=== PATIENT | female | born 1960 | race Caucasian/White ===

== ENCOUNTER 2021-04-05 13:58 | Inpatient (IN) | payer BC, MEDICARE ==
[~2021-04-05] VITALS: Ht 177.8 cm; Wt 61.2 kg
[2021-04-05 14:52] LABS: BASOPHILS % (AUTO) 0.3 % (0-1); EOSINOPHILS # (AUTO) 1.7 X10'3 (0-0.9); EOSINOPHILS % (AUTO) 19.9 % (0-6); HEMOGLOBIN 13.8 g/dl (12.0-16.0); LYMPHOCYTES # (AUTO) 2.5 X10'3 (1.1-4.8); LYMPHOCYTES % (AUTO) 29.9 % (21-51); MEAN CORPUSCULAR HEMOGLOBIN 30.7 PG (27.0-31.0); MEAN CORPUSCULAR HGB CONC 33.7 g/dL (33.0-36.5); MEAN PLATELET VOLUME 8.8 FL (7.4-10.4); MONOCYTES # (AUTO) 0.5 X10'3 (0-0.9); MONOCYTES % (AUTO) 5.8 % (2-12); NEUTROPHILS # (AUTO) 3.7 X10'3 (1.8-7.7); NEUTROPHILS % (AUTO) 44.1 % (42-75); PLATELET COUNT 282 X10'3 (140-440); RED BLOOD COUNT 4.51 X10'6 (4.20-5.60); RED CELL DISTRIBUTION WIDTH 13.4 % (11.5-14.5); WHITE BLOOD COUNT 8.3 X10'3 (4.5-11.0)
[2021-04-05 15:01] LABS: CLARITY,URINE CLOUDY (Clear); COLOR,URINE YELLOW (Yellow); GLUCOSE, URINE NEGATIVE (Neg); KETONES,URINE NEGATIVE (Neg); LEUKOCYTE ESTERASE ,URINE NEGATIVE (Neg); NITRITES, URINE NEGATIVE (Neg); OCCULT BLOOD,URINE NEGATIVE (Neg); PH,URINE 5.5 (4.8-8.0); PROTEIN,URINE NEGATIVE (Neg); UROBILINOGEN,URINE 0.2 E.U/dL (0.2-1.0)
[2021-04-05 15:02] LABS: UA COLLECTION TYPE CLN CATCH MIDSTREAM
[2021-04-05 15:05] LABS: BACTERIA,URINE 1+ /HPF (Neg); MUCUS STRANDS FEW /LPF (Neg); RBC,URINE 0-2 /HPF (0-2); SQUAMOUS EPITHELIAL CELL,UR MANY /LPF (FEW); WBC,URINE 0-4 /HPF (0-4)
[2021-04-05 15:14] LABS: ALANINE AMINOTRANSFERASE 27 U/L (12-78); ALBUMIN 3.9 G/DL (3.4-5.0); ALBUMIN/GLOBULIN RATIO 1.1 (1.1-1.5); ALKALINE PHOSPHATASE 88 IU/L (46-116); ANION GAP 6 (8-16); ASPARTATE AMINO TRANSFERASE 36 U/L (10-37); BILIRUBIN,TOTAL 0.5 MG/DL (0.1-1.0); BLOOD UREA NITROGEN 20 MG/DL (7-18); BUN/CREATININE RATIO 16.7 (6.6-38.0); CALCIUM 9.4 MG/DL (8.5-10.1); CHLORIDE 107 MMOL/L (99-107); GLUCOSE 83 MG/DL (70-104); LIPASE 579 U/L (73-393); SODIUM 145 MMOL/L (135-145); TOTAL CARBON DIOXIDE 31.9 MMOL/L (24-32); TOTAL PROTEIN 7.4 G/DL (6.4-8.2); eGFR 46 ML/MIN
[2021-04-05] MEDS ORDERED: acetaminophen 325mg tablet PO PRN ×2 (17:05)
[2021-04-05] MEDS ORDERED: magnesium Cl slow-release 64mg tablet PO PRN (17:05)
[2021-04-05] MEDS: piperacillin/tazo 3.375gm/50ml 50 ML IV SCH (17:05)
[2021-04-05] MEDS ORDERED: HYDROcodone/acetaminophen 5mg/325mg tablet PO PRN (17:05)
[2021-04-05] MEDS ORDERED: HYDROcodone/acetaminophen 10/325mg tab PO PRN (17:05)
[2021-04-05] MEDS ORDERED: potassium Cl 20 mEq SR tablet PO PRN ×2 (17:05)
[2021-04-05] MEDS ORDERED: magnesium 2GM in 50ml NS 50 ML IV PRN (17:05)
[2021-04-05] MEDS ORDERED: potassium Cl 40MEQ/1/2NS 520ml 520 ML IV PRN ×2 (17:05)
[2021-04-05] MEDS ORDERED: morphine 2 MG/ML inj. syringe IV PRN ×2 (17:05)
[2021-04-05] MEDS ORDERED: magnesium 4gm in 100ml NS 100 ML IV PRN (17:05)
[2021-04-05] MEDS ORDERED: iohexol 300mg/ml 100ml inj. ONE (17:38)
[2021-04-05] MEDS: normal saline 1000ml 1,000 ML IV SCH (17:48)
--- NOTE | 2021-04-05 19:23 | NUR ---
CALLED ER FOR REPORT AND NURSE WILL CALL BACK.
[2021-04-05] MEDS ORDERED: CHOL20004 PO (19:38)
[2021-04-05] MEDS ORDERED: CLON-528 PO (19:40)
[2021-04-05] MEDS ORDERED: ESTR42.53 VG (19:41)
[2021-04-05] MEDS ORDERED: GABA300C PO (19:42)
[2021-04-05] MEDS ORDERED: LEVO75TA PO (19:43)
[2021-04-05] MEDS ORDERED: OMEP-50 PO (19:44)
[2021-04-05] MEDS ORDERED: OXYC-150 PO (19:45)
[2021-04-05] MEDS ORDERED: PROP20TA6 PO (19:47)
--- NOTE | 2021-04-05 19:53 | NUR ---
REPORT RECEIVED FROM YEN IN ER. WAITING FOR PATIENT TO ARRIVE.
--- NOTE | 2021-04-05 19:58 | NUR ---
Page Sent PAGER ID: [phone] MESSAGE: Letty [phone]. RE: [facility] ER/[facility]. Updated med rec, pt is requesting Percocet that she usually takes at home. Does not want morphine or [place].
[2021-04-05 20:00] VITALS: BP 134/77
[2021-04-05] MEDS: K and/or MAG REPLACEMENT MC SCH (20:00)
--- NOTE | 2021-04-05 20:00 | NUR ---
PATIENT ARRIVED AND WILL CONTINUE TO MONITOR.
[2021-04-05] MEDS: pantoprazole 40 MG vial IV SCH (20:30)
[2021-04-05] MEDS: docusate sod 100mg capsule PO SCH (20:31)
[2021-04-05] MEDS: oxyCODONE/APAP 10/325mg tablet PO PRN (20:32)
[2021-04-05] MEDS: ondansetron/PF 4mg/2ml inj IV PRN (20:36)
[2021-04-05] MEDS: heparin, porcine 5000 units/ml vial SQ SCH (20:36)
[2021-04-05] MEDS ORDERED: PROP10TA10 PO (22:28)
[2021-04-06] VITALS: BP 102/56
[2021-04-06] MEDS: piperacillin/tazo 3.375gm/50ml 50 ML IV SCH ×4 (00:21→23:06)
[2021-04-06] MEDS: normal saline 1000ml 1,000 ML IV SCH ×3 (03:05→20:15)
[2021-04-06] MEDS: oxyCODONE/APAP 10/325mg tablet PO PRN ×3 (03:15→15:53)
--- NOTE | 2021-04-06 06:05 | NUR ---
Problems reprioritized. Patient report given, questions answered & plan of care reviewed with CAIO DICKINSON.
[2021-04-06 06:10] LABS: BASOPHILS % (AUTO) 0.3 % (0-1); EOSINOPHILS # (AUTO) 2.4 X10'3 (0-0.9); EOSINOPHILS % (AUTO) 32.9 % (0-6); HEMATOCRIT 35.5 % (35.0-45.0); HEMOGLOBIN 11.8 g/dl (12.0-16.0); LYMPHOCYTES # (AUTO) 2.1 X10'3 (1.1-4.8); LYMPHOCYTES % (AUTO) 27.6 % (21-51); MEAN CORPUSCULAR HEMOGLOBIN 30.2 PG (27.0-31.0); MEAN CORPUSCULAR HGB CONC 33.2 g/dL (33.0-36.5); MEAN PLATELET VOLUME 8.7 FL (7.4-10.4); MONOCYTES # (AUTO) 0.4 X10'3 (0-0.9); NEUTROPHILS # (AUTO) 2.5 X10'3 (1.8-7.7); NEUTROPHILS % (AUTO) 33.2 % (42-75); PLATELET COUNT 206 X10'3 (140-440); RED BLOOD COUNT 3.91 X10'6 (4.20-5.60); RED CELL DISTRIBUTION WIDTH 13.7 % (11.5-14.5); WHITE BLOOD COUNT 7.4 X10'3 (4.5-11.0)
[2021-04-06 06:33] LABS: ALANINE AMINOTRANSFERASE 20 U/L (12-78); ALBUMIN 2.9 G/DL (3.4-5.0); ALBUMIN/GLOBULIN RATIO 1.1 (1.1-1.5); ALKALINE PHOSPHATASE 69 IU/L (46-116); ANION GAP 8 (8-16); ASPARTATE AMINO TRANSFERASE 29 U/L (10-37); BILIRUBIN,TOTAL 0.7 MG/DL (0.1-1.0); BLOOD UREA NITROGEN 15 MG/DL (7-18); BUN/CREATININE RATIO 13.4 (6.6-38.0); CALCIUM 8.3 MG/DL (8.5-10.1); CHLORIDE 109 MMOL/L (99-107); CHOL/HDL RATIO 3.3 (0.00-4.99); CHOLESTEROL 127 MG/DL (0-200); CREATININE 1.12 MG/DL (0.40-0.90); GLUCOSE 82 MG/DL (70-104); HDL CHOLESTEROL 38 MG/DL (35-60); LDL CHOLESTEROL 75 MG/DL (50-100); MAGNESIUM 1.8 MG/DL (1.5-2.4); POTASSIUM 3.8 MMOL/L (3.5-5.1); SODIUM 145 MMOL/L (135-145); TOTAL CARBON DIOXIDE 27.9 MMOL/L (24-32); TOTAL PROTEIN 5.6 G/DL (6.4-8.2); TRIGLYCERIDES 57 MG/DL (20-135); eGFR 49 ML/MIN
[2021-04-06 07:00] VITALS: BP 120/69
[2021-04-06 07:17] LABS: TOTAL CELLS COUNTED 100
[2021-04-06 07:19] LABS: PLATELET ESTIMATE NORMAL; POIKILOCYTOSIS FEW
[2021-04-06] MEDS: heparin, porcine 5000 units/ml vial SQ SCH ×2 (08:00→20:12)
[2021-04-06] MEDS: K and/or MAG REPLACEMENT MC SCH ×2 (08:00→20:00)
[2021-04-06] MEDS: docusate sod 100mg capsule PO SCH ×2 (08:00→20:00)
[2021-04-06] MEDS: pantoprazole 40 MG vial IV SCH ×2 (08:45→20:10)
[2021-04-06] MEDS ORDERED: LORazepam 2 mg/ml vial IV STA (09:28)
[2021-04-06] MEDS ORDERED: clonazePAM 0.5mg tablet PO PRN (11:05)
--- NOTE | 2021-04-06 18:22 | NUR ---
I have received report from Huyen DICKINSON and had the opportunity to ask questions and assume patient care.
--- NOTE | 2021-04-06 18:35 | NUR ---
Problems reprioritized. Patient report given, questions answered & plan of care reviewed with Tg DICKINSON.
[2021-04-06 19:00] VITALS: BP 114/63
[2021-04-06] MEDS: gabapentin 300mg capsule PO SCH (20:12)
[2021-04-06] MEDS: lactobacillus rhamnosus 10,000 MMU CELLS/CAPSULE PO SCH (20:12)
[2021-04-06] MEDS ORDERED: propranolol 10mg tablet PO SCH (21:00)
[2021-04-07] VITALS: BP 116/65
--- NOTE | 2021-04-07 01:24 | NUR ---
pt asked if she would like pain medication, but pt declined. pt stated she cant take pain medication at night because "it keeps her up." Addendum: 04/07/21 at 0125 by Tg Davis RN Amended: Links added.
[2021-04-07] MEDS: oxyCODONE/APAP 10/325mg tablet PO PRN ×3 (03:44→18:03)
[2021-04-07] MEDS: normal saline 1000ml 1,000 ML IV SCH ×2 (04:54→13:58)
--- NOTE | 2021-04-07 06:35 | NUR ---
Problems reprioritized. Patient report given, questions answered & plan of care reviewed with Lina DICKINSON.
--- NOTE | 2021-04-07 06:38 | NUR ---
Patient in room [facility]. I have received report from Tg DICKINSON and had the opportunity to ask questions and assume patient care.
[2021-04-07] MEDS: ondansetron/PF 4mg/2ml inj IV PRN (07:16)
[2021-04-07 08:00] VITALS: BP 109/64
[2021-04-07] MEDS ORDERED: levoTHYROXINE 75mcg tablet PO SCH (08:00)
[2021-04-07] MEDS: K and/or MAG REPLACEMENT MC SCH (08:00)
[2021-04-07] MEDS: pantoprazole 40 MG vial IV SCH (08:20)
[2021-04-07] MEDS: lactobacillus rhamnosus 10,000 MMU CELLS/CAPSULE PO SCH (08:21)
[2021-04-07] MEDS: gabapentin 300mg capsule PO SCH (08:21)
[2021-04-07] MEDS: piperacillin/tazo 3.375gm/50ml 50 ML IV SCH ×2 (08:21→17:21)
[2021-04-07] MEDS: docusate sod 100mg capsule PO SCH (08:21)
[2021-04-07] MEDS: heparin, porcine 5000 units/ml vial SQ SCH (08:22)
[2021-04-07 08:27] LABS: BASOPHILS % (AUTO) 0.3 % (0-1); EOSINOPHILS # (AUTO) 2.4 X10'3 (0-0.9); EOSINOPHILS % (AUTO) 35.5 % (0-6); HEMATOCRIT 36.6 % (35.0-45.0); HEMOGLOBIN 12.2 g/dl (12.0-16.0); LYMPHOCYTES # (AUTO) 1.9 X10'3 (1.1-4.8); LYMPHOCYTES % (AUTO) 27.5 % (21-51); MEAN CORPUSCULAR HEMOGLOBIN 30.3 PG (27.0-31.0); MEAN CORPUSCULAR HGB CONC 33.4 g/dL (33.0-36.5); MEAN CORPUSCULAR VOLUME 90.7 FL (78-98); MEAN PLATELET VOLUME 8.8 FL (7.4-10.4); MONOCYTES # (AUTO) 0.3 X10'3 (0-0.9); NEUTROPHILS # (AUTO) 2.1 X10'3 (1.8-7.7); NEUTROPHILS % (AUTO) 31.7 % (42-75); PLATELET COUNT 227 X10'3 (140-440); RED BLOOD COUNT 4.03 X10'6 (4.20-5.60); RED CELL DISTRIBUTION WIDTH 13.7 % (11.5-14.5); WHITE BLOOD COUNT 6.8 X10'3 (4.5-11.0)
[2021-04-07 08:55] LABS: ALANINE AMINOTRANSFERASE 17 U/L (12-78); ALBUMIN/GLOBULIN RATIO 1.1 (1.1-1.5); ALKALINE PHOSPHATASE 68 IU/L (46-116); ANION GAP 8 (8-16); ASPARTATE AMINO TRANSFERASE 29 U/L (10-37); BILIRUBIN,TOTAL 0.4 MG/DL (0.1-1.0); BLOOD UREA NITROGEN 12 MG/DL (7-18); BUN/CREATININE RATIO 11.1 (6.6-38.0); CALCIUM 8.7 MG/DL (8.5-10.1); CHLORIDE 110 MMOL/L (99-107); CREATININE 1.08 MG/DL (0.40-0.90); GLUCOSE 86 MG/DL (70-104); MAGNESIUM 1.7 MG/DL (1.5-2.4); POTASSIUM 3.9 MMOL/L (3.5-5.1); SODIUM 144 MMOL/L (135-145); TOTAL CARBON DIOXIDE 26.4 MMOL/L (24-32); TOTAL PROTEIN 5.8 G/DL (6.4-8.2); eGFR 52 ML/MIN
[2021-04-07 12:00] VITALS: BP 117/56
[2021-04-07 15:19] LABS: LIPASE 284 U/L (73-393)
--- NOTE | 2021-04-07 18:48 | NUR ---
I have received report from Lina DICKINSON and had the opportunity to ask questions and assume patient care.
[2021-04-07 19:00] VITALS: BP 111/49
--- NOTE | 2021-04-07 22:10 | NUR ---
Pt had discharge orders in when I arrived on shift. Day shift nurse had all discharge paperwork printed out for the pt. VSS no signs of distress. pt IV was removed, cannula intact. discharge instructions went over with the pt and all questions answered. pt was brought down to lobby in a wheelchair with all personal belongings. pt left in a private vehicle.
--- NOTE | 2021-04-08 14:54 | NUR ---
CASE MANAGEMENT DISCHARGE FOLLOW UP: T/c to pt, she states that she is not doing very good at the moment, states having intense pain in abdomen. Will have gallbladder out tomorrow morning at [facility] with Dr Erickson. Per pt request, please call tomorrow afternoon. Will call pt back at another time.
== END 2021-04-07 20:00 | disposition home or self-care (01) | DRG 444 ==
LOC: ER 13:59 → ED HOLD 17:05 → EDBEDREQ 18:58 → SUR 3N 20:07
PROVIDERS: ADMIT Internal Medicine; ATTEND Internal Medicine
PROC: BW211ZZ Computerized Tomography (CT Scan) of Abdomen and Pelvis using Low Osmolar Contrast (ICD-10-PCS; principal; 2021-04-05)
DX: K80.10 Calculus of gallbladder with chronic cholecystitis without obstruction (principal); K85.10 Biliary acute pancreatitis without necrosis or infection; N17.0 Acute kidney failure with tubular necrosis; E03.9 Hypothyroidism, unspecified; F41.9 Anxiety disorder, unspecified; G43.909 Migraine, unspecified, not intractable, without status migrainosus; Z20.822 Contact with and (suspected) exposure to COVID-19; G89.4 Chronic pain syndrome; M54.9 Dorsalgia, unspecified; K21.9 Gastro-esophageal reflux disease without esophagitis; Z87.891 Personal history of nicotine dependence; Z90.710 Acquired absence of both cervix and uterus; Z88.8 Allergy status to other drugs, medicaments and biological substances
CPT/HCPCS: 36415; 74177; 74181; 76700; 80053; 80061; 81001; 83605; 83690; 83735; 85007; 85025; 87040; 87081; 87635; 93005; 96365; 96375; 97116; 97161; 97530; 99285; C9113; G0378; J1644; J2060; J2270; J2405; J2543; J7030; Q9967

== ENCOUNTER 2021-04-09 10:43 | Day surgery (SDC) | payer BC, MEDICARE ==
[2021-04-09] VITALS (14 sets, daily range): BP systolic 130–152; BP diastolic 73–101
[~2021-04-09] VITALS: Ht 177.8 cm; Wt 61.2 kg
[~2021-04-09 10:43] MED LIST: CHOL20004 PO; CLON-528 PO; ESTR42.53 VG; GABA300C PO; LEVO75TA PO; OMEP-50 PO; OXYC-150 PO; PROP10TA10 PO
[2021-04-09] MEDS ORDERED: INDOCYANINE GREEN 25 MG/10 ML VIAL IV ONE (10:45)
[2021-04-09] MEDS ORDERED: ceFOXitin sod/dextrose 2g/50ml 50 ML IV ONE (10:45)
[2021-04-09] MEDS ORDERED: ceFOXitin 2GM-NS 100mL ADDvant 100 ML IV ONE (11:00)
[2021-04-09] MEDS ORDERED: ringers solution, lacted 1,000 ML IV SCH ×2 (11:20→14:35)
[2021-04-09] MEDS ORDERED: famotidine 20mg tablet PO ONE (11:20)
[2021-04-09] MEDS ORDERED: ONDA8TAB13 PO (11:21)
[2021-04-09] MEDS ORDERED: ATRNS NAS (11:21)
[2021-04-09 11:50] LABS: BASOPHILS % (AUTO) 0.5 % (0-1); EOSINOPHILS # (AUTO) 2.5 X10'3 (0-0.9); EOSINOPHILS % (AUTO) 31.8 % (0-6); LYMPHOCYTES # (AUTO) 2.1 X10'3 (1.1-4.8); LYMPHOCYTES % (AUTO) 26.8 % (21-51); MEAN CORPUSCULAR HEMOGLOBIN 30.7 PG (27.0-31.0); MEAN CORPUSCULAR HGB CONC 33.8 g/dL (33.0-36.5); MEAN CORPUSCULAR VOLUME 90.8 FL (78-98); MEAN PLATELET VOLUME 8.5 FL (7.4-10.4); MONOCYTES # (AUTO) 0.5 X10'3 (0-0.9); NEUTROPHILS # (AUTO) 2.7 X10'3 (1.8-7.7); NEUTROPHILS % (AUTO) 34.9 % (42-75); PRE OP HEMATOCRIT 35.8 % (35.0-45.0); PRE OP HEMOGLOBIN 12.1 g/dL (12.0-16.0); PRE OP PLATELET COUNT 227 X10'3 (140-440); RED BLOOD COUNT 3.94 X10'6 (4.20-5.60); RED CELL DISTRIBUTION WIDTH 13.9 % (11.5-14.5)
[2021-04-09 11:55] LABS: CLARITY,URINE CLOUDY (Clear); COLOR,URINE YELLOW (Yellow); GLUCOSE, URINE NEGATIVE (Neg); KETONES,URINE NEGATIVE (Neg); LEUKOCYTE ESTERASE ,URINE NEGATIVE (Neg); NITRITES, URINE NEGATIVE (Neg); OCCULT BLOOD,URINE NEGATIVE (Neg); PROTEIN,URINE NEGATIVE (Neg); UROBILINOGEN,URINE 0.2 E.U/dL (0.2-1.0)
[2021-04-09 11:57] LABS: ALBUMIN 3.5 G/DL (3.4-5.0); ALBUMIN/GLOBULIN RATIO 1.2 (1.1-1.5); ALKALINE PHOSPHATASE 76 IU/L (46-116); BLOOD UREA NITROGEN 14 MG/DL (7-18); BUN/CREATININE RATIO 13.5 (6.6-38.0); CALCIUM 8.9 MG/DL (8.5-10.1); CHLORIDE 110 MMOL/L (99-107); CREATININE 1.04 MG/DL (0.40-0.90); PRE OP ALT 60 U/L (30-65); PRE OP ANION GAP 4 (8-16); PRE OP AST 94 U/L (10-37); PRE OP BILIRUB, TOTAL 0.4 MG/DL (0.0-1.0); PRE OP GLUCOSE 88 MG/DL (70-104); PRE OP POTASSIUM 3.9 MMOL/L (3.4-5.1); PRE OP SODIUM 143 MMOL/L (135-145); TOTAL CARBON DIOXIDE 28.6 MMOL/L (24-32); TOTAL PROTEIN 6.5 G/DL (6.4-8.2); eGFR 54 ML/MIN
[2021-04-09 12:01] LABS: UA COLLECTION TYPE CLN CATCH MIDSTREAM
[2021-04-09 12:03] LABS: BACTERIA,URINE FEW /HPF (Neg); MUCUS STRANDS FEW /LPF (Neg); RBC,URINE NONE SEEN /HPF (0-2); SQUAMOUS EPITHELIAL CELL,UR MANY /LPF (FEW); WBC,URINE 0-4 /HPF (0-4)
[2021-04-09 13:00] LABS: TOTAL CELLS COUNTED 100
[2021-04-09 13:01] LABS: PLATELET ESTIMATE NORMAL
[2021-04-09] MEDS ORDERED: BUPIVAcaine/PF 2.5 mg/ml (0.25%) 30ml vial ONE (13:41)
[2021-04-09] MEDS ORDERED: meperidine/PF 50mg/ml syringe ONE (14:08)
[2021-04-09] MEDS ORDERED: propofol inj 20 ML IV ONE (14:08)
[2021-04-09] MEDS ORDERED: rocuronium 10mg/ml inj IV ONE (14:08)
[2021-04-09] MEDS ORDERED: midazolam 1 mg/ML 2ml injection ONE (14:08)
[2021-04-09] MEDS ORDERED: LIDOcaine 2% (20mg/ml) 5ml vial ONE (14:08)
[2021-04-09] MEDS ORDERED: dexamethasone sod phosphate 4mg/ml inj. ONE (14:09)
[2021-04-09] MEDS ORDERED: glycopyrrolate 0.2mg/ml inj ONE (14:10)
[2021-04-09] MEDS ORDERED: neostigmine methylsulfate 1 MG/ML 10ml vial ONE (14:10)
[2021-04-09] MEDS ORDERED: ondansetron/PF 4mg/2ml inj ONE (14:10)
[2021-04-09] MEDS ORDERED: sevoflurane 250ml liquid IH ONE (14:10)
[2021-04-09] MEDS ORDERED: hydrALAZINE 20mg/ml inj. IV PRN (14:35)
[2021-04-09] MEDS ORDERED: ondansetron/PF 4mg/2ml inj IV PRN (14:35)
[2021-04-09] MEDS ORDERED: fentaNYL/PF 50MCG/1 ML 2ML syringe IV PRN ×2 (14:35)
[2021-04-09] MEDS ORDERED: labetalol 20mg/4ml (5mg/ml) syringe IV PRN (14:35)
[2021-04-09] MEDS ORDERED: morphine 2 MG/ML inj. syringe IV PRN (14:35)
[2021-04-09] MEDS ORDERED: naloxone 0.4 mg/ml inj ONE (14:52)
--- NOTE | 2021-04-09 15:05 | NUR ---
Received from OR via [facility] , accompanied by Anesthesiologist ALBERTA and report given by Anesthesiolgist. PATIENT WITH 20G PIV IN LEFT UE RUNNIGN LRA T 100. DENIES PAIN AT THIS TIME. LAP SITE TO ABDOMEN ARE ALL CDI CURRENTLY Addendum: 04/09/21 at 1523 by Fadi Guerrier RN, RN Amended: Links added.
[2021-04-09] MEDS: morphine 4 MG/ML inj SYRINge IV PRN ×2 (15:40→15:56)
[2021-04-09] MEDS ORDERED: oxyCODONE/APAP 10/325mg tablet PO ONE (16:00)
[2021-04-09] MEDS ORDERED: HYDROmorphone/PF 0.2 MG/ML SYRINGE IV PRN (16:10)
[2021-04-09] MEDS: HYDROmorphone/PF 0.2 MG/ML SYRINGE IV PRN ×2 (16:13→16:43)
--- NOTE | 2021-04-09 17:05 | NUR ---
PACU DISCHARGE CRITERIA MET, REPORT GIVEN TO FLOOR. DENIES PAIN OR DISCOMFORT, TRANSFERRED TO ROOM IN STABLE GOOD CONDITION. Addendum: 04/09/21 at 1722 by Fadi Guerrier RN, RN Amended: Links added.
== END 2021-04-09 17:05 | disposition home or self-care (01) ==
LOC: PRE-OP 10:43 → PAS 17:05
PROVIDERS: ATTEND Surgery
DX: K85.10 Biliary acute pancreatitis without necrosis or infection (principal); K81.1 Chronic cholecystitis; F41.9 Anxiety disorder, unspecified; E03.9 Hypothyroidism, unspecified; K21.9 Gastro-esophageal reflux disease without esophagitis; G43.909 Migraine, unspecified, not intractable, without status migrainosus; G89.29 Other chronic pain; Z98.890 Other specified postprocedural states; Z88.8 Allergy status to other drugs, medicaments and biological substances; Z79.899 Other long term (current) drug therapy
CPT/HCPCS: 36415; 47562; 80053; 81001; 82948; 85025; J0694; J1100; J1170; J2001; J2175; J2250; J2270; J2310; J2405; J2704; J2710; J3490; J7120; 85007; A4215; A4618; A7000

== ENCOUNTER 2024-01-23 12:19 | Emergency (ER) | payer BC, MEDICARE ==
[~2024-01-23] VITALS: Ht 177.8 cm; Wt 61.4 kg
[~2024-01-23 12:19] MED LIST changes: +ATRNS NAS; -CLON-528 PO; +CLON-850 PO; -OMEP-50 PO; +OMEP20CA16 PO; +ONDA8TAB13 PO
[2024-01-23 12:30] VITALS: BP 122/81; PULSE 80; TEMP 97.5; O2SAT 95
[2024-01-23 12:53] VITALS: RESP 18
[2024-01-23] MEDS ORDERED: CEFD300C3 PO (13:08)
[2024-01-23] MEDS ORDERED: DIF150T PO (13:08)
== END 2024-01-23 13:22 | disposition home or self-care (01) ==
LOC: ER 12:19
DX: J20.9 Acute bronchitis, unspecified (principal); G89.29 Other chronic pain; M54.9 Dorsalgia, unspecified; Z79.899 Other long term (current) drug therapy; Z88.1 Allergy status to other antibiotic agents
CPT/HCPCS: 99283

== ENCOUNTER 2024-04-28 10:37 | Emergency (ER) | payer BC, MEDICARE ==
[~2024-04-28] VITALS: Ht 177.8 cm; Wt 61.4 kg
[2024-04-28 10:50] VITALS: BP 142/70; PULSE 70; RESP 16; TEMP 98.6; O2SAT 96
== END 2024-04-28 12:04 | disposition home or self-care (01) ==
LOC: ER 10:38
DX: M79.674 Pain in right toe(s) (principal); Z88.1 Allergy status to other antibiotic agents; Z88.8 Allergy status to other drugs, medicaments and biological substances; Z79.899 Other long term (current) drug therapy; Z79.2 Long term (current) use of antibiotics
CPT/HCPCS: 73660; 99283

== ENCOUNTER 2025-03-19 10:53 | Emergency (ER) | payer BC, MEDICARE ==
[~2025-03-19] VITALS: Ht 177.8 cm; Wt 64.5 kg
[~2025-03-19 10:53] MED LIST changes: +ONDA-245 PO; -ONDA8TAB13 PO
[2025-03-19] MEDS ORDERED: PRED10TA23 PO (11:27)
[2025-03-19] MEDS ORDERED: AMOX500C2 PO (11:27)
[2025-03-19 11:34] VITALS: BP 132/86; PULSE 76; RESP 16; TEMP 98.8; O2SAT 98
[2025-03-19] MEDS ORDERED: DIF150T PO (11:50)
== END 2025-03-19 11:52 | disposition home or self-care (01) ==
LOC: ER 10:54
DX: J20.9 Acute bronchitis, unspecified (principal); Z88.1 Allergy status to other antibiotic agents; Z88.8 Allergy status to other drugs, medicaments and biological substances
CPT/HCPCS: 99283

== ENCOUNTER 2025-06-16 08:50 | Emergency (ER) | payer BC, MEDICARE ==
[~2025-06-16] VITALS: Ht 177.8 cm; Wt 60.0 kg
[2025-06-16 08:56] VITALS: TEMP 97.8
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
--- NOTE | 2025-06-16 09:41 | RADIOLOGY REPORT ---
Procedure: DI TIB/FIB 2 VWS 06/16/2025 09:17 AM TECHNIQUE: DI TIB/FIB 2 VWS Indication: LEG PAIN Comparison: None FINDINGS: Bones: No acute fracture or dislocation. Joint spaces are maintained. Soft tissues: Unremarkable. No radiopaque foreign body. IMPRESSION: 1. No acute osseous abnormality.
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
[2025-06-16 09:52] VITALS: BP 136/79; PULSE 74; RESP 16; O2SAT 100
== END 2025-06-16 10:11 | disposition home or self-care (01) ==
LOC: ER 08:50
DX: S80.12XA Contusion of left lower leg, initial encounter (principal); R07.89 Other chest pain; Z88.1 Allergy status to other antibiotic agents; Z88.8 Allergy status to other drugs, medicaments and biological substances; V49.40XA Driver injured in collision with unspecified motor vehicles in traffic accident, initial encounter; Y93.89 Activity, other specified; Y92.89 Other specified places as the place of occurrence of the external cause; Y99.9 Unspecified external cause status
CPT/HCPCS: 71045; 73590; 99284